=== PATIENT | female | born 1985 | race Caucasian/White ===

== ENCOUNTER 2017-11-19 23:31 | Inpatient (IN) | payer OTHER ==
[~2017-11-19] VITALS: Ht 167.6 cm; Wt 75.0 kg
[2017-11-19] MEDS ORDERED: OXYTOCIN 30U/ 0.9% NaCL 500ML 500 ML IV ONE (23:52)
[2017-11-19] MEDS ORDERED: OXYTOCIN 30U/ 0.9% NaCL 500ML 500 ML IV PRN (23:52)
[2017-11-20] MEDS ORDERED: ONDANSETRON 2MG/ML, 2ML IVPush PRN
[2017-11-20] MEDS ORDERED: TERBUTALINE 1 MG/ML, 1ML IVPush PRN
[2017-11-20] MEDS ORDERED: FENTANYL PF 100 MCG/2ML IVPush PRN
[2017-11-20] MEDS ORDERED: FENTANYL PF 100 MCG/2ML IV PRN
[2017-11-20] MEDS: LACTATED RINGERS 1,000 ML IV SCH ×7 (00:02→17:22)
[2017-11-20 00:11] LABS: MEAN CORPUSCULAR HEMOGLOBIN 31.4 pg (27.0-34.8); MEAN CORPUSCULAR VOLUME 92.5 fL (80-100); MEAN PLATELET VOLUME 8.9 fL (7.4-10.4); PLATELET COUNT 223 x10^3/uL (130-400); RED BLOOD COUNT 3.95 x10^6/uL (3.82-5.3); RED CELL DISTRIBUTION WIDTH 13.8 % (9.6-15.2)
[2017-11-20 00:14] LABS: BASOPHILS # (AUTO) 0.04 x10^3/uL (0-0.1); BASOPHILS % (AUTO) 0 % (0-1); EOSINOPHILS # (AUTO) 0.07 x10^3/uL (0-0.4); EOSINOPHILS % (AUTO) 0 % (1-7); LYMPHOCYTES # (AUTO) 1.95 x10^3/uL (1-3.4); LYMPHOCYTES % (AUTO) 11 % (22-44); MD SCAN; MONOCYTES # (AUTO) 1.05 x10^3/uL (0.2-0.8); MONOCYTES % (AUTO) 6 % (2-9); NEUTROPHILS # (AUTO) 14.46 x10^3/uL (1.8-6.8); NEUTROPHILS % (AUTO) 82 % (42-75)
[2017-11-20] MEDS ORDERED: FENTANYL/BUPIV./NS/PF 250 ML EPIDCONT ONE (00:21)
[2017-11-20] MEDS ORDERED: BUPIVACAINE 0.25% ONE (00:21)
[2017-11-20] MEDS ORDERED: FENTANYL/BUPIV./NS/PF 250 ML EPIDCONT SCH (00:41)
[2017-11-20] MEDS ORDERED: EPHEDRINE 50 MG/ML, 1ML IVPush PRN (01:00)
[2017-11-20] MEDS ORDERED: LACTATED RINGERS 1,000 ML IVBOLUS PRN (01:00)
[2017-11-20] MEDS: D5%-LACTATED RINGERS 1,000 ML IV SCH ×3 (01:12→15:52)
[2017-11-20] MEDS ORDERED: NEWBORN KIT ONE (02:08)
[2017-11-20] MEDS ORDERED: OXYTOCIN 30U/ 0.9% NaCL 500ML 500 ML ONE ×2 (02:08→16:17)
[2017-11-20] MEDS ORDERED: CEFAZOLIN 1,000 MG ONE (10:32)
[2017-11-20] MEDS ORDERED: KETOROLAC 30 MG/1 ML ONE ×2 (10:32→16:20)
[2017-11-20] MEDS ORDERED: TERBUTALINE 1 MG/ML, 1ML ONE (10:57)
[2017-11-20] MEDS ORDERED: METOCLOPRAMIDE 5 MG/ML, 2ML ONE (11:24)
[2017-11-20] MEDS ORDERED: SODIUM CITRATE/CITRIC ACID 30 ML UDC ONE (11:24)
[2017-11-20 13:23] LABS: MEAN CORPUSCULAR HEMOGLOBIN 31.1 pg (27.0-34.8); MEAN CORPUSCULAR HGB CONC 33.2 g/dL (32.4-35.8); MEAN CORPUSCULAR VOLUME 93.7 fL (80-100); MEAN PLATELET VOLUME 8.6 fL (7.4-10.4); PLATELET COUNT 214 x10^3/uL (130-400); RED CELL DISTRIBUTION WIDTH 14.3 % (9.6-15.2)
[2017-11-20] MEDS ORDERED: LACTATED RINGERS 1,000 ML IV SCH ×2 (13:49→14:00)
[2017-11-20] MEDS ORDERED: OXYTOCIN 30U/ 0.9% NaCL 500ML 500 ML IV SCH (13:49)
[2017-11-20 13:55] LABS: BASOPHILS # (AUTO) 0.03 x10^3/uL (0-0.1); BASOPHILS % (AUTO) 0 % (0-1); EOSINOPHILS # (AUTO) 0.01 x10^3/uL (0-0.4); EOSINOPHILS % (AUTO) 0 % (1-7); LYMPHOCYTES # (AUTO) 1.99 x10^3/uL (1-3.4); LYMPHOCYTES % (AUTO) 12 % (22-44); MD SCAN; MONOCYTES # (AUTO) 1.04 x10^3/uL (0.2-0.8); MONOCYTES % (AUTO) 6 % (2-9); NEUTROPHILS # (AUTO) 14.12 x10^3/uL (1.8-6.8); NEUTROPHILS % (AUTO) 82 % (42-75)
[2017-11-20] MEDS ORDERED: METOCLOPRAMIDE 5 MG/ML, 2ML IV ONE (14:00)
[2017-11-20] MEDS ORDERED: SODIUM CITRATE/CITRIC ACID 30 ML UDC PO ONE (14:00)
[2017-11-20] MEDS ORDERED: FENTANYL PF 100 MCG/2ML ONE (14:31)
[2017-11-20] MEDS ORDERED: MISOPROSTOL 200 MCG TABLET PR PRN (16:30)
[2017-11-20] MEDS ORDERED: ONDANSETRON 2MG/ML, 2ML IV PRN (16:30)
[2017-11-20] MEDS ORDERED: morphine SULFATE 10 MG/ML, 1ML IVPush PRN ×2 (16:30)
[2017-11-20] MEDS ORDERED: SIMETHICONE 80 MG CHEW TAB PO PRN (16:30)
[2017-11-20] MEDS ORDERED: OXYcodone/APAP 5/325MG TABLET PO PRN (16:30)
[2017-11-20] MEDS ORDERED: CALCIUM CARBONATE 500 MG TAB.CHEW PO PRN ×2 (16:30)
[2017-11-20] MEDS ORDERED: MEPERIDINE/PF 50 MG/ML IM PRN (16:30)
[2017-11-20] MEDS: OXYTOCIN 30U/ 0.9% NaCL 500ML 500 ML IV SCH (17:22)
[2017-11-20 17:50] VITALS: BP 122/72
[2017-11-20 19:45] VITALS: BP 133/87
[2017-11-20] MEDS ORDERED: ONDANSETRON ODT 4 MG PO PRN (21:30)
[2017-11-20] MEDS: KETOROLAC 30 MG/1 ML IV SCH (22:24)
[2017-11-20 23:57] VITALS: BP 111/62
[2017-11-21] MEDS: LACTATED RINGERS 1,000 ML IV SCH ×3 (00:29→08:29)
[2017-11-21] MEDS: OXYTOCIN 30U/ 0.9% NaCL 500ML 500 ML IV SCH (02:05)
[2017-11-21] MEDS: KETOROLAC 30 MG/1 ML IV SCH ×4 (04:04→23:36)
[2017-11-21 04:12] VITALS: BP 122/66
[2017-11-21] MEDS: OXYcodone/APAP 5/325MG TABLET PO PRN ×4 (05:02→23:36)
[2017-11-21 05:15] LABS: BASOPHILS # (AUTO) 0.04 x10^3/uL (0-0.1); BASOPHILS % (AUTO) 0 % (0-1); EOSINOPHILS # (AUTO) 0.03 x10^3/uL (0-0.4); EOSINOPHILS % (AUTO) 0 % (1-7); LYMPHOCYTES # (AUTO) 2.45 x10^3/uL (1-3.4); LYMPHOCYTES % (AUTO) 14 % (22-44); MD NO; MEAN CORPUSCULAR HEMOGLOBIN 31.7 pg (27.0-34.8); MEAN CORPUSCULAR HGB CONC 33.6 g/dL (32.4-35.8); MEAN CORPUSCULAR VOLUME 94.3 fL (80-100); MEAN PLATELET VOLUME 8.6 fL (7.4-10.4); MONOCYTES # (AUTO) 1.05 x10^3/uL (0.2-0.8); MONOCYTES % (AUTO) 6 % (2-9); NEUTROPHILS # (AUTO) 14.01 x10^3/uL (1.8-6.8); NEUTROPHILS % (AUTO) 80 % (42-75); PLATELET COUNT 212 x10^3/uL (130-400); RED BLOOD COUNT 2.92 x10^6/uL (3.82-5.3); RED CELL DISTRIBUTION WIDTH 14.4 % (9.6-15.2)
[2017-11-21 08:00] VITALS: BP 108/65
[2017-11-21] MEDS: DOCUSATE 100 MG CAPSULE PO PRN ×2 (08:34→19:31)
[2017-11-21] MEDS: PRENATAL VIT/IRON/FA 1 EACH TABLET PO SCH (08:34)
[2017-11-21] MEDS ORDERED: RHOGAM FROM BLOOD BANK 1 NOTE EA IM/IV ONE (09:30)
[2017-11-21 19:40] VITALS: BP 121/82
[2017-11-22] MEDS: OXYcodone/APAP 5/325MG TABLET PO PRN ×2 (05:41→19:42)
[2017-11-22] MEDS: KETOROLAC 30 MG/1 ML IV SCH ×2 (05:41→12:00)
[2017-11-22 07:20] VITALS: BP 91/63
[2017-11-22] MEDS: PRENATAL VIT/IRON/FA 1 EACH TABLET PO SCH (09:25)
[2017-11-22] MEDS: DOCUSATE 100 MG CAPSULE PO PRN ×2 (09:25→19:42)
[2017-11-22] MEDS: IBUPROFEN 600 MG TABLET PO PRN ×2 (13:39→19:42)
[2017-11-22 19:45] VITALS: BP 113/69
[2017-11-23] MEDS: OXYcodone/APAP 5/325MG TABLET PO PRN ×3 (00:27→11:51)
[2017-11-23] MEDS: IBUPROFEN 600 MG TABLET PO PRN ×2 (05:46→11:51)
[2017-11-23 07:30] VITALS: BP 93/62
[2017-11-23 08:45] VITALS: BP 103/66
[2017-11-23] MEDS: DOCUSATE 100 MG CAPSULE PO PRN (08:57)
[2017-11-23] MEDS: PRENATAL VIT/IRON/FA 1 EACH TABLET PO SCH (08:57)
[2017-11-23] MEDS ORDERED: OXYC-302 PO (14:24)
[2017-11-23] MEDS ORDERED: IBUP-1222 PO (14:24)
[2017-11-23] MEDS ORDERED: DOCU-131 PO (14:25)
== END 2017-11-23 15:25 | disposition home or self-care (01) | DRG 766 ==
LOC: LDOP 23:31 → LDIP 11-20 00:17 → 2NW 11-20 17:38
PROVIDERS: ADMIT Obstetrics & Gynecology; ATTEND Obstetrics & Gynecology
PROC: 10D00Z1 Extraction of Products of Conception, Low, Open Approach (ICD-10-PCS; principal; 2017-11-20)
PROC: 10907ZC Drainage of Amniotic Fluid, Therapeutic from Products of Conception, Via Natural or Artificial Opening (ICD-10-PCS; 2017-11-20)
PROC: 30233S1 Transfusion of Nonautologous Globulin into Peripheral Vein, Percutaneous Approach (ICD-10-PCS; 2017-11-21)
DX: O64.0XX0 Obstructed labor due to incomplete rotation of fetal head, not applicable or unspecified (principal); O76 Abnormality in fetal heart rate and rhythm complicating labor and delivery; Z37.0 Single live birth; O77.9 Labor and delivery complicated by fetal stress, unspecified; Z87.410 Personal history of cervical dysplasia; Z3A.00 Weeks of gestation of pregnancy not specified
CPT/HCPCS: 36415; 82803; 85025; 85461; 86850; 86900; J0690; J1885; J2274; J2790; J3010; J3490; Q0162; J2370; J2590; J2765; J7120; J7121

== ENCOUNTER → 2020-07-06 | Outpatient (CLI) | payer OTHER ==
[~2020-07-06] MED LIST: DOCU-131 PO; IBUP-1222 PO; OXYC-302 PO
[2020-07-06 10:08] LABS: BASOPHILS % (AUTO) 1 % (0-1); EOSINOPHILS % (AUTO) 1 % (1-7); LYMPHOCYTES % (AUTO) 21 % (22-44); MEAN CORPUSCULAR HEMOGLOBIN 31.3 pg (27.0-34.8); MEAN CORPUSCULAR HGB CONC 33.5 g/dL (32.4-35.8); MEAN PLATELET VOLUME 7.1 fL (7.4-10.4); MONOCYTES % (AUTO) 6 % (2-9); NEUTROPHILS % (AUTO) 72 % (42-75); PLATELET COUNT 373 x10^3/uL (130-400); RED BLOOD COUNT 4.06 x10^6/uL (3.82-5.3)
[2020-07-06 10:11] LABS: MD NO
== END | disposition home or self-care (01) ==
LOC: LAB 08:41
PROVIDERS: ATTEND Nurse Practitioner Women's Health
DX: Z34.80 Encounter for supervision of other normal pregnancy, unspecified trimester (principal)
CPT/HCPCS: 36415; 82950; 85025; 86592; 86850; 86900

== ENCOUNTER 2020-10-12 02:01 | Inpatient (IN) | payer OTHER ==
[~2020-10-12] VITALS: Ht 170.2 cm; Wt 74.5 kg
[~2020-10-12 02:01] MED LIST changes: -OXYC-302 PO; +OXYC1TAB14 PO
[2020-10-12] MEDS ORDERED: OXYTOCIN 30U/ 0.9% NaCL 500ML 500 ML ONE (02:07)
[2020-10-12] MEDS ORDERED: MISOPROSTOL 200 MCG TABLET ONE (02:08)
[2020-10-12] MEDS ORDERED: LIDOCAINE 1%, 20ML ONE (02:08)
[2020-10-12] MEDS ORDERED: SODIUM CHLORIDE FLUSH 10ML SYR IVF PRN (02:30)
[2020-10-12] MEDS ORDERED: SODIUM CITRATE/CITRIC ACID 30 ML UDC PO PRN (02:30)
[2020-10-12] MEDS ORDERED: METOCLOPRAMIDE 5 MG/ML, 2ML IVPush PRN (02:30)
[2020-10-12] MEDS ORDERED: ALUMINUM/MAG/SIMETHICONE 30 ML UDC PO PRN (02:30)
[2020-10-12] MEDS ORDERED: CALCIUM CARBONATE 500 MG TAB.CHEW PO PRN (02:30)
[2020-10-12] MEDS ORDERED: ONDANSETRON 2MG/ML, 2ML IVPush PRN (02:30)
[2020-10-12] MEDS ORDERED: OXYTOCIN 30U/ 0.9% NaCL 500ML 500 ML IV ONE (02:30)
[2020-10-12] MEDS: D5%-LACTATED RINGERS 1,000 ML IV SCH ×3 (02:30→18:30)
[2020-10-12] MEDS ORDERED: OXYTOCIN 30U/ 0.9% NaCL 500ML 500 ML IV PRN (02:30)
[2020-10-12] MEDS ORDERED: TERBUTALINE 1 MG/ML, 1ML IVPush PRN (02:30)
[2020-10-12] MEDS ORDERED: TERBUTALINE 1 MG/ML, 1ML SQ PRN (02:30)
[2020-10-12] MEDS ORDERED: FENTANYL PF 100 MCG/2ML IVPush PRN (02:30)
[2020-10-12 02:33] LABS: BASOPHILS % (AUTO) 1 % (0-1); EOSINOPHILS % (AUTO) 0 % (1-7); LYMPHOCYTES % (AUTO) 12 % (22-44); MEAN CORPUSCULAR HEMOGLOBIN 31.7 pg (27.0-34.8); MEAN CORPUSCULAR HGB CONC 33.5 g/dL (32.4-35.8); MEAN PLATELET VOLUME 8.6 fL (7.4-10.4); MONOCYTES % (AUTO) 6 % (2-9); NEUTROPHILS % (AUTO) 81 % (42-75); PLATELET COUNT 237 x10^3/uL (130-400); RED BLOOD COUNT 4.57 x10^6/uL (3.82-5.3); RED CELL DISTRIBUTION WIDTH 13.3 % (9.6-15.2)
[2020-10-12 02:56] LABS: MD SCAN
[2020-10-12] MEDS ORDERED: SIMETHICONE 80 MG CHEW TAB PO PRN (03:00)
[2020-10-12] MEDS ORDERED: ACETAMINOPHEN 325 MG TABLET PO PRN (03:00)
[2020-10-12] MEDS ORDERED: OXYcodone IR 5MG TABLET PO PRN (03:00)
[2020-10-12] MEDS ORDERED: ONDANSETRON 2MG/ML, 2ML IV PRN (03:00)
[2020-10-12] MEDS ORDERED: MISOPROSTOL 200 MCG TABLET PR PRN (03:00)
[2020-10-12] MEDS ORDERED: DOCUSATE 100 MG CAPSULE PO PRN (03:00)
[2020-10-12] MEDS: OXYTOCIN 30U/ 0.9% NaCL 500ML 500 ML IV SCH ×3 (03:00→23:00)
[2020-10-12] MEDS: IBUPROFEN 600 MG TABLET PO PRN ×4 (03:18→22:12)
[2020-10-12] MEDS: OXYcodone/APAP 5/325MG TABLET PO PRN ×4 (03:23→20:12)
[2020-10-12 04:50] VITALS: BP 120/85
[2020-10-12] MEDS: PRENATAL VIT/IRON/FA 1 EACH TABLET PO SCH (07:47)
[2020-10-12 08:48] VITALS: BP 114/72
[2020-10-12 11:30] LABS: BASOPHILS % (AUTO) 0 % (0-1); EOSINOPHILS % (AUTO) 0 % (1-7); LYMPHOCYTES % (AUTO) 12 % (22-44); MEAN CORPUSCULAR HEMOGLOBIN 31.6 pg (27.0-34.8); MEAN CORPUSCULAR HGB CONC 33.5 g/dL (32.4-35.8); MEAN PLATELET VOLUME 8.9 fL (7.4-10.4); MONOCYTES % (AUTO) 6 % (2-9); NEUTROPHILS % (AUTO) 82 % (42-75); PLATELET COUNT 183 x10^3/uL (130-400); RED BLOOD COUNT 3.84 x10^6/uL (3.82-5.3); RED CELL DISTRIBUTION WIDTH 13.4 % (9.6-15.2)
[2020-10-12 12:02] LABS: MD SCAN
[2020-10-12 13:30] VITALS: BP 118/72
[2020-10-12 13:42] VITALS: BP 118/72
[2020-10-12] MEDS ORDERED: RHOGAM FROM BLOOD BANK 1 NOTE EA IM/IV ONE (14:00)
[2020-10-12 20:19] VITALS: BP 126/80
[2020-10-13 00:30] VITALS: BP 108/68
[2020-10-13] MEDS: D5%-LACTATED RINGERS 1,000 ML IV SCH ×2 (02:30→10:30)
[2020-10-13] MEDS: OXYcodone/APAP 5/325MG TABLET PO PRN (06:03)
[2020-10-13] MEDS: IBUPROFEN 600 MG TABLET PO PRN (06:03)
[2020-10-13] MEDS ORDERED: OXYC1TAB14 PO (07:02)
[2020-10-13] MEDS ORDERED: IBUP-1222 PO (07:02)
[2020-10-13 08:00] VITALS: BP 113/77
[2020-10-13] MEDS: OXYTOCIN 30U/ 0.9% NaCL 500ML 500 ML IV SCH (09:00)
[2020-10-13] MEDS: PRENATAL VIT/IRON/FA 1 EACH TABLET PO SCH (09:00)
== END 2020-10-13 10:35 | disposition home or self-care (01) | DRG 807 ==
LOC: LDOP 02:01 → LDIP 02:10 → 2NW 04:40
PROVIDERS: ADMIT Obstetrics & Gynecology; ATTEND Obstetrics & Gynecology
PROC: 10E0XZZ Delivery of Products of Conception, External Approach (ICD-10-PCS; principal; 2020-10-12)
PROC: 0KQM0ZZ Repair Perineum Muscle, Open Approach (ICD-10-PCS; 2020-10-12)
PROC: 10907ZC Drainage of Amniotic Fluid, Therapeutic from Products of Conception, Via Natural or Artificial Opening (ICD-10-PCS; 2020-10-12)
PROC: 0UQMXZZ Repair Vulva, External Approach (ICD-10-PCS; 2020-10-12)
PROC: 3E0234Z Introduction of Serum, Toxoid and Vaccine into Muscle, Percutaneous Approach (ICD-10-PCS; 2020-10-12)
DX: O77.0 Labor and delivery complicated by meconium in amniotic fluid (principal); Z37.0 Single live birth; Z3A.40 40 weeks gestation of pregnancy; O34.211 Maternal care for low transverse scar from previous cesarean delivery; O70.1 Second degree perineal laceration during delivery; O71.82 Other specified trauma to perineum and vulva; Z23 Encounter for immunization
CPT/HCPCS: 36415; 85025; 85461; 86592; 86850; 86900; G0378; J2790